=== PATIENT | female | born 1970 | race Caucasian/White ===

== ENCOUNTER → 2023-07-23 07:04 | Outpatient (REF) | payer OTHER, SELFPAY | LOC: WDC 07:04 | PROVIDERS: ATTENDING PHYSICIAN Obstetrics & Gynecology; FAMILY PHYSICIAN Physician Assistant Medical | DX: Z12.31 Encounter for screening mammogram for malignant neoplasm of breast (principal) | CPT/HCPCS: 77063; 77067 ==

== ENCOUNTER 2024-03-25 09:49 | Emergency (ER) | payer OTHER, SELFPAY ==
[2024-03-25 10:02] VITALS: BP 141/99
[2024-03-25 10:21] LABS: % Basophils 0.6 % (0-2); % Immature Granulocytes 0.2 % (0-0.5); % Lymphocytes 38.8 % (20.5-51.1); % Monocytes 6.6 % (1.7-9.3); % Neutrophils 52.8 % (42.2-75.2); Absolute Eosinophils 0.1 10^3/uL (0-0.7); Absolute Monocytes 0.3 10^3/uL (0.1-0.6); Absolute Neutrophils 2.7 10^3/uL (1.4-6.5); Hematocrit 41.8 % (37.0-47.0); Hemoglobin 14.6 g/dL (12.0-16.0); Mean Corp Hgb Conc. 34.9 g/dL (33.0-37.0); Mean Corpuscular Hgb 29.7 pg (27.0-31.0); Mean Platelet Volume 9.6 fL (7.4-10.4); Nucleated Red Blood Cells % 0 %; Platelet Count 282 10^3/uL (130-400); Red Blood Cell Count 4.92 10^6/uL (4.20-5.40); White Blood Cell Count 5.1 10^3/uL (4.8-10.8)
--- NOTE | 2024-03-25 10:21 | ED.GENMED ---
History of Present Illness
General
Chief Complaint: Chest Pain
Source: patient
Exam Limitations: none
Time Seen by Provider: 03/25/24 10:21
Nursing documentation reviewed up to this point in time: agreed with
History of Present Illness
History of Present Illness:
Patient is a 53-year-old female who presents to the ER for evaluation. Patient reports starting last night at 11 PM she started with chest pain across her chest and into her right jaw. She has felt intermittently nauseous with this and feels
lightheaded. She reports she had trouble sleeping because the pain persisted throughout the night and is still persistent. She does describe this as a pressure across her chest' like someone is sitting on it.'
She denies any dental pain. She felt a little winded while getting dressed today.
She is very mildly borderline high cholesterol. She has no history of CAD she did see cardiology after COVID for a mild arrhythmia which resolved
She is a non-smoker.
Patient's father had significant heart disease had his first IA at age 42.
Pt does report that she recently got back from a trip to [facility] 3 weeks ago.
She denies any injury. Denies any pain with deep breath however does report when she sits up she feels the sensation more.
Review of Systems
Review of Systems
Allergies reviewed?: Yes
All Other Systems: ROS reviewed and negative except as documented in HPI and ROS
Constitutional: Reports no symptoms; Denies fever, fatigue or chills
EENT: Reports other (jaw pain )
Respiratory: Reports no symptoms
Cardiac: Reports chest pain
ABD/GI: Reports nausea; Denies abdominal pain or vomiting
Musculoskeletal: Reports no symptoms
Skin: Reports no symptoms
Neurological: Reports no symptoms
Psychiatric: Reports no symptoms
Phy Exam
General Physical Exam
General Presentation: no apparent distress
General age: appears stated age
General Skin: warm and dry
General Habitus: normal
General Mental: alert
General Hydration: appears well hydrated
ENT Exam
ENT Exam: other (No right sided tooth tenderness or gum swelling no trismus)
Cardiovascular Exam
Cardiovascular Exam: regular rate/rhythm, no murmur and normal peripheral pulses
Pulmonary Exam
Pulmonary Exam: lungs clear and no respiratory distress
Neurological Exam
Neurological Exam: alert and oriented x3
Musculoskeletal Exam
Musculoskeletal Exam: full ROM
Skin Exam
Skin Exam: normal color and warm/dry
Psychiatric Exam
Psychiatric Exam: normal mood/affect
Scores
Heart Score for Chest Pain Patients
STEMI patient?: Not applicable
Course
Orders/Labs/Results
Orders:
Orders
03/25/24 09:50
ECG [Electrocardiogram (*1)] Urgent
Reason for Study: Chest Pain
EKG- Treatment ONCE
03/25/24 10:14
Complete Blood Count/With Diff Urgent
Comprehensive Metabolic Panel Urgent
Troponin I Urgent
03/25/24 10:53
DDimer [D-Dimer] Urgent
03/25/24 12:00
Ketorolac [Toradol] 15 mg IV NOW STA
03/25/24 12:06
Electrocardiogram (*1) Stat
Reason for Study: Chest Pain
EKG- Treatment ONCE
03/25/24 13:01
Troponin I Urgent
03/25/24 14:21
Chest [CR Chest - 2 Views ] Urgent
Comment:
Reason For Exam: cp
Abnormal Lab Results
03/25/24
10:14
BUN 18 H mg/dl
(7-17)
Glucose 102 H mg/dl
(70-99)
03/25/24 10:14
03/25/24 10:14
Vital Signs
Initial and Last Documented VS:
Initial Vital Signs
Temp Pulse Resp BP Pulse Ox
97.7 F 79 16 141/99 98
03/25/24 10:02 03/25/24 10:02 03/25/24 10:02 03/25/24 10:02 03/25/24 10:02
Last Documented Vital Signs
Temp Pulse Resp BP Pulse Ox
97.7 F 60 16 127/79 99
03/25/24 10:02 03/25/24 14:00 03/25/24 14:00 03/25/24 14:00 03/25/24 14:00
Manager Of Financial Reporting consulted with Physician
Manager Of Financial Reporting consulted with physician?: Yes
Name of Physician Consulted: DR Russell
MDM/Problems Addressed
Differential Diagnosis Includes:
Not limited to ACS, less likely PE musculoskeletal pain dental pain
MDM/Problems Addressed:
Patient is document is a 53-year-old female with chest pain and right jaw pain since 11 PM last night no cardiac history. There is family history however.
Patient presented here awake alert no acute distress patient has had 2 cardiac troponins which were negative along with unremarkable EKGs. She was given Toradol symptoms have improved jaw pain completely resolved and chest pain has improved. No
actual injury she is not short of breath however given recent travel to [facility] D-dimer was done and negative.
Case reviewed with ED physician will place on chest pain hotline
*Radiology
Radiology exam reviewed: radiology read reviewed
*Critical Care Note
Total Time (30-74mins, 75-104mins- exclusive of procedures): Not Applicable
ED Attending Note
-
Portions of this chart may have been created with voice recognition software.� Occasional wrong word or��sound alike� substitutions may have occurred due to the inherent limitations of voice recognition software.
Discharge Plan
Departure
Patient Disposition: Home (Routine Discharge)
Date of Disposition: 03/25/24
Time of Disposition: 14:57
Patient with high blood pressure during this ER visit?: Yes
Condition: Fair
Covid-19: Not Applicable
Discharge Problem:
Chest pain
Instructions: Chest Pain DCA Follow Up
Referrals:
Marco Danielson MD [Active] -
Corky Yanez PA-C [Family Provider] -
Activity Restrictions/Additional Instructions:
As discussed you were placed on the chest pain hotline. You should receive a call from their office in the next several days however if you do not please call them to schedule an appointment soon as possible. Return if any worsening of symptoms.
Interventions
Interventions:
*Risk Screen - Suicide Last Done: 03/25/24 10:02
*Neglect/Abuse Screening Last Done: 03/25/24 10:02
ED- Fall Risk Assessment Last Done: 03/25/24 11:15
*ED COVID-19 Vaccine History Last Done: 03/25/24 11:15
*Nursing Disposition Last Done: 03/25/24 15:09
ED- Cardiac Assessment Last Done: 03/25/24 11:15
Discharge Date and Time
Discharge Date/Time: 03/25/24 15:10
Print Language: CHINESE
[2024-03-25 10:25] VITALS: BP 133/92
[2024-03-25 10:42] LABS: ALT (SGPT) 19 U/L (0-35); AST (SGOT) 24 U/L (14-36); Albumin 4.8 g/dl (3.5-5.0); Alkaline Phosphatase 69 U/L (38-126); Blood Urea Nitrogen 18 mg/dl (7-17); Calcium 9.7 mg/dl (8.4-10.2); Carbon Dioxide 23 mmol/L (22-30); Chloride 105 mmol/L (98-107); Glucose 102 mg/dl (70-99); Potassium 4.3 mmol/L (3.5-5.1); Sodium 140 mmol/L (135-145); Total Bilirubin 0.5 mg/dl (0.2-1.3); Total Protein 7.4 g/dl (6.3-8.2); eGFR > 60.00
[2024-03-25 11:00] VITALS: BP 128/84
[2024-03-25 11:04] LABS: Troponin I < 0.012 ng/ml
[2024-03-25 11:42] LABS: D-Dimer < 0.27 ug/mlFEU (0.00-0.50)
[2024-03-25 12:00] VITALS: BP 129/81
[2024-03-25] MEDS: TORADOL 15 MG IV (12:14)
[2024-03-25 13:00] VITALS: BP 125/77
[2024-03-25 13:34] LABS: Troponin I < 0.012 ng/ml
[2024-03-25 14:00] VITALS: BP 127/79
== END 2024-03-25 15:10 | disposition home or self-care (01) ==
LOC: EMR 09:49
PROVIDERS: Nurse Practitioner; EMERGENCY PHYSICIAN Emergency Medicine; FAMILY PHYSICIAN Physician Assistant Medical
DX: R07.89 Other chest pain (principal); Z82.49 Family history of ischemic heart disease and other diseases of the circulatory system
CPT/HCPCS: 96374; 99285; 71046; 80053; 84484; 85025; 85379; 93005

== ENCOUNTER → 2024-07-26 07:00 | Outpatient (REF) | payer OTHER, SELFPAY | LOC: WDC 07:00 | PROVIDERS: ATTENDING PHYSICIAN Obstetrics & Gynecology; FAMILY PHYSICIAN Physician Assistant Medical | DX: Z12.31 Encounter for screening mammogram for malignant neoplasm of breast (principal) | CPT/HCPCS: 77063; 77067 ==

== ENCOUNTER → 2024-08-04 09:37 | Outpatient (REF) | payer OTHER, SELFPAY | LOC: WDC 09:37 | PROVIDERS: ATTENDING PHYSICIAN Obstetrics & Gynecology; FAMILY PHYSICIAN Physician Assistant Medical | DX: R92.8 Other abnormal and inconclusive findings on diagnostic imaging of breast (principal) | CPT/HCPCS: 77065 ==